=== PATIENT | male | born 1950 | race Caucasian/White ===

== ENCOUNTER 2017-02-16 03:27 | Emergency (ER) | payer BC ==
[2017-02-16 03:53] LABS: % IMMATURE GRANULYOCYTES 0.3 % (0.0-1.1); ABSOLUTE IMMATURE GRANULOCYTES 0.03 10^3/uL (0.00-0.10); ADD DIFF? NO; ADD MORPH? NO; ADD SCAN? NO; ATYPICAL LYMPHOCYTE FLAG 0 (0-99); FRAGMENT RBC FLAG 0 (0-99); HEMATOCRIT 43.3 % (40.0-51.0); HEMOGLOBIN 15.1 g/dL (13.7-17.5); LEFT SHIFT FLG 0 (0-99); LIPEMIA HEMOLYSIS FLAG 90 (0-99); MEAN CELL HEMOGLOBIN 31.7 pg (27.9-34.1); MEAN CELL HEMOGLOBIN CONCENTR. 34.9 g/dL (32.4-36.7); MEAN PLATELET VOLUME 10.7 fL (8.7-11.7); PLATELET CLUMPS FLAG 0 (0-99); PLATELET COUNT 240 10^3/uL (150-400); RED BLOOD CELL COUNT 4.76 10^6/uL (4.40-6.38); RED CELL DISTRIBUTION WIDTH 13.1 % (11.5-15.2)
[2017-02-16] MEDS ORDERED: NS 1,000 ML IV ONE ×2 (04:00→04:51)
[2017-02-16 04:08] LABS: ANION GAP 16 mEq/L (8-16); CALCIUM 11.6 mg/dL (8.5-10.4); CARBON DIOXIDE 23 mEq/l (22-31); CHLORIDE 102 mEq/L (97-110); GLOMERULAR FILTRATION RATE > 60; GLUCOSE 160 mg/dL (70-100); POTASSIUM 4.9 mEq/L (3.5-5.2); SODIUM 141 mEq/L (134-144); SPECIMEN HEMOLYSIS 118
[2017-02-16] MEDS ORDERED: ONDANSETRON 4 MG/2 ML VIAL IVP ONE (04:13)
[2017-02-16] MEDS ORDERED: KETOROLAC 15 MG/1 ML SDV IVP ONE (04:13)
[2017-02-16] MEDS ORDERED: IOPAMIDOL (ISOVUE-300) 100 ML BTL ONE (04:14)
[2017-02-16] MEDS ORDERED: LIDOCAINE 1% 180 MG in NS 100 ML IV ONE (04:51)
[2017-02-16 05:21] VITALS: RESP 16; O2SAT 92
--- NOTE | 2017-02-16 05:58 | EDPHY ---
H & P Stated Complaint: ABD PAIN TO BACK WITH VOMITING Time Seen by Provider: 02/16/17 03:53 HPI/ROS: HPI The patient presents with left-sided lower back pain for the last 2 days. The pain started slowly, has been intermittent and is achy in nature. He also has pain of his abdomen which is somewhat diffuse. This is associated with decreased appetite. He does not have any difficulty urinating. He does not have any fever or diarrhea. He was not able to sleep tonight because of the pain so he came into the emergency department. He has no prior history of similar. He is visiting from [place] and staying at a hotel locally for business. REVIEW OF SYSTEMS Constitutional: No fever, no chills. Eyes: No discharge. ENT: No sore throat. Cardiovascular: No chest pain, no palpitations. Respiratory: No cough, no shortness of breath. Gastrointestinal: See HPI Genitourinary: No hematuria. Musculoskeletal: No back pain. Skin: No rashes. Neurological: No headache. PMHx: Diabetes, hypertension, hyperlipidemia Soc Hx: Visiting from out of town PHYSICAL General Appearance: Alert, no distress Eyes: Pupils equal and round no pallor or injection ENT, Mouth: Mucous membranes moist Respiratory: There are no retractions, lungs are clear to auscultation Cardiovascular: Regular rate and rhythm Gastrointestinal: Abdomen is soft with mild tenderness left lower quadrant, no masses, bowel sounds normal Back: There is left-sided CVA tenderness Neurological: A&O, moves all extremities Skin: Warm and dry, no rashes Musculoskeletal: Neck is supple non tender Extremities: symmetrical, full range of motion Psychiatric: Patient is oriented X 3, there is no agitation Source: Patient Exam Limitations: No limitations - Personal History Current Tetanus/Diphtheria Vaccine: Yes Current Tetanus Diphtheria and Acellular Pertussis (TDAP): Yes - Medical/Surgical History Hx Asthma: No Hx Diabetes: Yes Hx Cardiac Disease: Yes Hx Renal Disease: No Hx Cirrhosis: No Hx Alcoholism: No Hx HIV/AIDS: No Hx Splenectomy or Spleen Trauma: No Other PMH: HTN, HIGH CHOLESTEROL, D.M., - Social History Smoking Status: Never smoked Constitutional: Initial Vital Signs Temperature (C) 37.0 C 02/16/17 03:30 Heart Rate 77 02/16/17 03:30 Respiratory Rate 18 02/16/17 03:30 Blood Pressure 186/104 H 02/16/17 03:30 O2 Sat (%) 96 02/16/17 03:30 O2 Delivery Mode Room Air Allergies/Adverse Reactions: No Known Allergies Allergy (Unverified 02/16/17 03:33) Home Medications: Medication Instructions Recorded Aspirin [Aspirin 81mg (*)] 81 mg PO DAILY 02/16/17 Carvedilol [Coreg] 25 mg PO 02/16/17 Enalapril Maleate 20 mg PO 02/16/17 Eplerenone 25 mg PO 02/16/17 Hydrocodone/APAP 5/325 [[place] 1 - 2 tab PO Q6H PRN #15 tab 02/16/17 5/325 (*)] Metformin HCl [Fortamet] 500 mg PO DAILY 02/16/17 Mv-Min/FA/Vit K/Lycop/Lut/Zeax 1 each PO 02/16/17 [Ocuvite Eye + Multi Tablet] Ondansetron Odt [Zofran Odt 4 mg 4 mg PO Q4 PRN #10 tab 02/16/17 (*)] Simvastatin 40 mg PO 02/16/17 Tamsulosin HCl [Flomax 0.4 MG (*)] 0.4 mg PO DAILY #10 cap 02/16/17 Ubidecarenone [Coq10] 50 mg PO 02/16/17 Medical Decision Making - Diagnostics Imaging Results: CT abdomen pelvis with IV contrast demonstrates an 8 mm kidney stone at maximum diameter, within the ureter, with mild hydronephrosis, discussed with Dr. Alberts of Radiology. Imaging: Discussed imaging studies w/ call manager Radiologist Differential Diagnosis: This is a 66-year-old male with diabetes, hypertension, hyperlipidemia who presents with several days of left-sided intermittent flank pain, abdominal pain , diminished appetite. On exam, he has left flank tenderness and left lower quadrant tenderness. Differential diagnosis includes ureterolithiasis, diverticulitis, pyelonephritis , colitis. In the emergency department, patient given IV fluids, Toradol for his pain. Labs were relatively unremarkable. CT scan did demonstrate a left-sided ureteral stone with hydronephrosis. I feel this is most likely the cause of his pain. I explained this finding to him. He was given additional in fluids and lidocaine for his pain with improvement in his symptoms. UA was unremarkable except for hematuria. He will be discharged home, he is visiting from out of town, I have instructed him that in the size of the stone he will likely need follow up with Urology. He is in agreement with this plan. He was instructed to drink plenty of fluids. - Data Points Laboratory Results: Laboratory Results 02/16/17 03:48 02/16/17 03:48 02/16/17 02/16/17 03:48 03:48 WBC 11.54 10^3/uL H 10^3/uL (3.80-9.50) RBC 4.76 10^6/uL 10^6/uL (4.40-6.38) Hgb 15.1 g/dL g/dL (13.7-17.5) Hct 43.3 % % (40.0-51.0) MCV 91.0 fL fL (81.5-99.8) MCH 31.7 pg pg (27.9-34.1) MCHC 34.9 g/dL g/dL (32.4-36.7) RDW 13.1 % % (11.5-15.2) Plt Count 240 10^3/uL 10^3/uL (150-400) MPV 10.7 fL fL (8.7-11.7) Neut % (Auto) 78.7 % H % (39.3-74.2) Lymph % (Auto) 14.2 % L % (15.0-45.0) [place] % (Auto) 6.3 % % (4.5-13.0) Eos % (Auto) 0.1 % L % (0.6-7.6) Baso % (Auto) 0.4 % % (0.3-1.7) Nucleat RBC Rel Count 0.0 % % (0.0-0.2) Absolute Neuts (auto) 9.08 10^3/uL H 10^3/uL (1.70-6.50) Absolute Lymphs (auto) 1.64 10^3/uL 10^3/uL (1.00-3.00) Absolute Monos (auto) 0.73 10^3/uL 10^3/uL (0.30-0.80) Absolute Eos (auto) 0.01 10^3/uL L 10^3/uL (0.03-0.40) Absolute Basos (auto) 0.05 10^3/uL 10^3/uL (0.02-0.10) Absolute Nucleated RBC 0.00 10^3/uL 10^3/uL (0-0.01) Immature Gran % 0.3 % % (0.0-1.1) Immature Gran # 0.03 10^3/uL 10^3/uL (0.00-0.10) Sodium 141 mEq/L mEq/L (134-144) Potassium 4.9 mEq/L mEq/L (3.5-5.2) Chloride 102 mEq/L mEq/L (97-110) Carbon Dioxide 23 mEq/l mEq/l (22-31) Anion Gap 16 mEq/L mEq/L (8-16) BUN 18 mg/dL mg/dL (7-23) Creatinine 1.0 mg/dL mg/dL (0.7-1.3) Estimated GFR > 60 Glucose 160 mg/dL H mg/dL (70-100) Calcium 11.6 mg/dL H mg/dL (8.5-10.4) Phosphorus 3.5 mg/dL mg/dL (2.5-4.5) Specimen Hemolysis 118 Medications Given: Discontinued Medications Sodium Chloride (Ns) 1,000 mls @ 0 mls/hr IV ONCE ONE; Wide Open PRN Reason: Protocol Stop: 02/16/17 04:01 Last Admin: 02/16/17 04:15 Dose: 1,000 mls Lidocaine HCl 180 mg/ Sodium (Chloride) 118 mls @ 600 mls/hr IV EDNOW ONE Stop: 02/16/17 05:02 Last Admin: 02/16/17 05:17 Dose: 118 mls Sodium Chloride (Ns) 1,000 mls @ 3,000 mls/hr IV EDNOW ONE Stop: 02/16/17 05:10 Last Admin: 02/16/17 05:17 Dose: 1,000 mls Ketorolac Tromethamine (Toradol) 15 mg IVP EDNOW ONE Stop: 02/16/17 04:14 Last Admin: 02/16/17 04:15 Dose: 15 mg Ondansetron HCl (Zofran) 4 mg IVP EDNOW ONE Stop: 02/16/17 04:14 Last Admin: 02/16/17 04:15 Dose: 4 mg Departure - Departure Disposition: Home, Routine, Self-Care Clinical Impression: Ureterolithiasis Condition: Good Instructions: Renal Colic (ED), How to Strain Your Urine (ED) Additional Instructions: 1. Take Ibuprofen or Motrin 600 mg by mouth three times a day. 2. [place] as needed for severe pain 3. Flomax as directed 4. Zofran as needed for nausea 5. Strain urine as directed 6. Return to the Emergency Department for intractable pain, fever or vomiting. 7. Followup with the urologist you have been referred to for unimproved symptoms. Prescriptions: Hydrocodone/APAP 5/325 [[place] 5/325 (*)] 1 - 2 tab PO Q6H PRN #15 tab PRN Reason: Pain, Breakthrough Ondansetron Odt [Zofran Odt 4 mg (*)] 4 mg PO Q4 PRN #10 tab PRN Reason: Nausea/Vomiting, Can'T Take Po Tamsulosin HCl [Flomax 0.4 MG (*)] 0.4 mg PO DAILY #10 cap
[2017-02-16 06:18] LABS: COLOR YELLOW; LEUKOCYTE ESTERASE,URINE NEGATIVE (NEGATIVE); NITRITE,URINE NEGATIVE (NEGATIVE)
[2017-02-16 06:49] VITALS: BP 152/84; PULSE 80; TEMP 98.6
== END 2017-02-16 06:49 | disposition home or self-care (01) ==
DX: N20.1 Calculus of ureter (principal); I10 Essential (primary) hypertension; E11.9 Type 2 diabetes mellitus without complications; E86.9 Volume depletion, unspecified; Z79.82 Long term (current) use of aspirin; Z79.84 Long term (current) use of oral hypoglycemic drugs
CPT/HCPCS: 96374; J1885; J2405; Q9967